=== PATIENT | male | born 1990 | race African-American/Black ===

== ENCOUNTER 2019-11-11 09:52 | Emergency (ER) | payer SELFPAY ==
[~2019-11-11] VITALS: Ht 170.2 cm; Wt 68.0 kg
--- NOTE | 2019-11-11 09:55 | Emergency Room Report ---
History of Present Illness General Chief Complaint: Altered Level of Consciousness Source: Patient (Charli Saleh MD) Present Illness HPI Disclaimer: Please note that this report is being documented using DRAGON technology. This can lead to erroneous entry secondary to incorrect interpretation by the dictating instrument. HPI: 29-year-old male presents from home for altered level of consciousness. He EMS was called by family stated he was more lethargic than usual. Patient arrives alert and oriented x3 and states that he feels weak and nauseated. He admits to drinking alcohol and using drugs last night but will not specify which drugs. Denies chest pain, shortness of breath, cough, fever, chills, vomiting or diarrhea. PMH: Asthma PSH: Denies Allergies: Denies Social Hx: Reports alcohol and drug use (Charli Saleh MD) Allergies: Coded Allergies: No Known Allergies (Unverified , 11/11/19) COVID-19 Screening Contact w/high risk pt: No Experienced COVID-19 symptoms?: No COVID-19 Testing performed PRINTING PLATE MAKER: No (Charli Saleh MD) Nursing Documentation-PMH Hx Asthma: Yes (Charli Saleh MD) Review of Systems All Other Systems: negative except mentioned in HPI (Charli Saleh MD) Physical Exam Vital Signs Date Time Temp Pulse Resp B/P (MAP) Pulse Ox O2 Delivery O2 Flow Rate FiO2 11/11/19 09:44 98.1 110 19 133/80 (97) 96 Room Air General: Awake and alert, no acute distress HEENT: NC/AT. EOMI. Cardiovascular: Tachycardic. S1 and S2 normal. No murmur appreciated Resp: Normal work of breathing. No cough, wheezing or crackles appreciated Abdomen: Abdomen is soft, nondistended. Nontender Skin: Intact. No abrasions, laceration or rash over the exposed skin MSK: Normal tone and bulk. Moving all extremities. No obvious deformity. Neuro: Awake and alert. GCS 15. Mentating appropriately. (Charli Saleh MD) Medical Decision Making Diagnostic Impression: Primary Impression: Amphetamine abuse Additional Impressions: Hyperbilirubinemia Microscopic hematuria Prolonged QT interval ER Course 29-year-old male presents for evaluation of lethargy. Differential includes but is not limited to dehydration, viral syndrome, electrolyte abnormality, infection, alcohol use, drug use. EKG showed sinus rhythm with now normalized rate. His QTC is prolonged. Magnesium slightly low and will replete. Urinalysis unremarkable for infection but is positive for methamphetamines. The patient now admits to using ecstasy earlier. Will be allowed to metabolize and reevaluated once clinically sober. Patient signed out to oncoming physician for ultimate disposition. Labs Test 11/11/19 10:00 11/11/19 11:00 White Blood Count 16.1 K/UL (4.8-10.8) Red Blood Count 4.70 M/UL (4.70-6.10) Hemoglobin 16.1 G/DL (14.2-18.0) Hematocrit 48.8 % (42.0-52.0) Mean Corpuscular Volume 104 FL (80-99) Mean Corpuscular Hemoglobin 34.2 PG (27.0-31.0) Mean Corpuscular Hemoglobin Concent 32.9 G/DL (32.0-36.0) Red Cell Distribution Width 12.8 % (11.6-14.8) Platelet Count 327 K/UL (150-450) Mean Platelet Volume 6.5 FL (6.5-10.1) Neutrophils (%) (Auto) 81.2 % (45.0-75.0) Lymphocytes (%) (Auto) 6.9 % (20.0-45.0) Monocytes (%) (Auto) 7.9 % (1.0-10.0) Eosinophils (%) (Auto) 0.9 % (0.0-3.0) Basophils (%) (Auto) 3.1 % (0.0-2.0) Urine Color Yellow Urine Appearance Clear Urine pH 6.5 (4.5-8.0) Urine Specific Robert 1.020 (1.005-1.035) Urine Protein 4+ (NEGATIVE) Urine Glucose (UA) Negative (NEGATIVE) Urine Ketones 3+ (NEGATIVE) Urine Blood 5+ (NEGATIVE) Urine Nitrite Negative (NEGATIVE) Urine Bilirubin Negative (NEGATIVE) Urine Urobilinogen 1 MG/DL (0.0-1.0) Urine Leukocyte Esterase 1+ (NEGATIVE) Urine RBC 10-15 /HPF (0 - 0) Urine WBC 0-2 /HPF (0 - 0) Urine Squamous Epithelial Cells Occasional /LPF Urine Bacteria Few /HPF (NONE) Urine Mucus Few /LPF (NONE/OCC) Sodium Level 137 MMOL/L (136-145) Potassium Level 3.4 MMOL/L (3.5-5.1) Chloride Level 98 MMOL/L (98-107) Carbon Dioxide Level 28 MMOL/L (21-32) Anion Gap 11 mmol/L (5-15) Blood Urea Nitrogen 6 mg/dL (7-18) Creatinine 1.3 MG/DL (0.55-1.30) Estimat Glomerular Filtration Rate > 60 mL/min (>60) Glucose Level 127 MG/DL (74-106) Calcium Level 9.2 MG/DL (8.5-10.1) Total Bilirubin 3.3 MG/DL (0.2-1.0) Direct Bilirubin 0.4 MG/DL (0.0-0.3) Aspartate Amino Transf (AST/SGOT) 37 U/L (15-37) Alanine Aminotransferase (ALT/SGPT) 38 U/L (12-78) Alkaline Phosphatase 105 U/L (46-116) Total Protein 8.7 G/DL (6.4-8.2) Albumin 4.9 G/DL (3.4-5.0) Globulin 3.8 g/dL Albumin/Globulin Ratio 1.3 (1.0-2.7) Lipase 81 U/L (73-393) Salicylates Level < 0.2 ug/mL (2.8-20) Urine Opiates Screen Negative (NEGATIVE) Acetaminophen Level < 2 MCG/ML (10-30) Urine Barbiturates Screen Negative (NEGATIVE) Phencyclidine (PCP) Screen Negative (NEGATIVE) Urine Amphetamines Screen Positive (NEGATIVE) Urine Benzodiazepines Screen Negative (NEGATIVE) Urine Cocaine Screen Negative (NEGATIVE) Urine Marijuana (THC) Screen Positive (NEGATIVE) Serum Alcohol < 3 mg/dL Phosphorus Level 2.1 MG/DL (2.5-4.9) Magnesium Level 2.3 MG/DL (1.8-2.4) (Charli Saleh MD) ER Course Signout received from Dr. Saleh Patient pending sobriety Reevaluation 4:15 PM patient is able to road test, additionally patient is back to baseline patient wanted me to evaluate his scrotum for bumps, search manager was Jennifer [place] abbreviated exam: No obvious lesions, rugated on the scrotum completely normal Counseled patient to follow-up with cardiology for prolonged QTC disposition home with return precautions also to not utilize drugs Laboratory Tests Test 11/11/19 10:00 11/11/19 11:00 White Blood Count 16.1 K/UL (4.8-10.8) H Red Blood Count 4.70 M/UL (4.70-6.10) Hemoglobin 16.1 G/DL (14.2-18.0) Hematocrit 48.8 % (42.0-52.0) Mean Corpuscular Volume 104 FL (80-99) H Mean Corpuscular Hemoglobin 34.2 PG (27.0-31.0) H Mean Corpuscular Hemoglobin Concent 32.9 G/DL (32.0-36.0) Red Cell Distribution Width 12.8 % (11.6-14.8) Platelet Count 327 K/UL (150-450) Mean Platelet Volume 6.5 FL (6.5-10.1) Neutrophils (%) (Auto) 81.2 % (45.0-75.0) H Lymphocytes (%) (Auto) 6.9 % (20.0-45.0) L Monocytes (%) (Auto) 7.9 % (1.0-10.0) Eosinophils (%) (Auto) 0.9 % (0.0-3.0) Basophils (%) (Auto) 3.1 % (0.0-2.0) H Urine Color Yellow Urine Appearance Clear Urine pH 6.5 (4.5-8.0) Urine Specific Robert 1.020 (1.005-1.035) Urine Protein 4+ (NEGATIVE) H Urine Glucose (UA) Negative (NEGATIVE) Urine Ketones 3+ (NEGATIVE) H Urine Blood 5+ (NEGATIVE) H Urine Nitrite Negative (NEGATIVE) Urine Bilirubin Negative (NEGATIVE) Urine Urobilinogen 1 MG/DL (0.0-1.0) H Urine Leukocyte Esterase 1+ (NEGATIVE) H Urine RBC 10-15 /HPF (0 - 0) H Urine WBC 0-2 /HPF (0 - 0) Urine Squamous Epithelial Cells Occasional /LPF Urine Bacteria Few /HPF (NONE) Urine Mucus Few /LPF (NONE/OCC) H Sodium Level 137 MMOL/L (136-145) Potassium Level 3.4 MMOL/L (3.5-5.1) L Chloride Level 98 MMOL/L (98-107) Carbon Dioxide Level 28 MMOL/L (21-32) Anion Gap 11 mmol/L (5-15) Blood Urea Nitrogen 6 mg/dL (7-18) L Creatinine 1.3 MG/DL (0.55-1.30) Estimated Glomerular Filtration Rate > 60 mL/min (>60) Glucose Level 127 MG/DL (74-106) H Calcium Level 9.2 MG/DL (8.5-10.1) Total Bilirubin 3.3 MG/DL (0.2-1.0) H Direct Bilirubin 0.4 MG/DL (0.0-0.3) H Aspartate Amino Transferase (AST) 37 U/L (15-37) Alanine Aminotransferase (ALT) 38 U/L (12-78) Alkaline Phosphatase 105 U/L (46-116) Total Protein 8.7 G/DL (6.4-8.2) H Albumin 4.9 G/DL (3.4-5.0) Globulin 3.8 g/dL Albumin/Globulin Ratio 1.3 (1.0-2.7) Lipase 81 U/L (73-393) Salicylates Level < 0.2 ug/mL (2.8-20) L Urine Opiates Screen Negative (NEGATIVE) Acetaminophen Level < 2 MCG/ML (10-30) L Urine Barbiturates Screen Negative (NEGATIVE) Phencyclidine (PCP) Screen Negative (NEGATIVE) Urine Amphetamines Screen Positive (NEGATIVE) H Urine Benzodiazepines Screen Negative (NEGATIVE) Urine Cocaine Screen Negative (NEGATIVE) Urine Marijuana (THC) Screen Positive (NEGATIVE) H Serum Alcohol < 3 mg/dL Phosphorus Level 2.1 MG/DL (2.5-4.9) L Magnesium Level 2.3 MG/DL (1.8-2.4) (Frank Pritchard MD) EKG Diagnostic Results EKG Time: 10:01 Rate: normal Rhythm: NSR ST Segments: no acute changes Other Impression Sinus rhythm, normal axis, prolonged QTC. No acute ST segment changes. (Charli Saleh MD) Rhythm Strip Diag. Results Rhythm Strip Time: 10:01 EP Interpretation: yes Rate: 80s Rhythm: NSR, no PVC's, no ectopy (Charli Saleh MD) CT/MRI/US Diagnostic Results CT/MRI/US Diagnostic Results : Impression Procedure: CT Head no Contrast EXAM: CT CT Head no Contrast INDICATION: Altered level consciousness. Weakness and nausea. TECHNIQUE: Axial images of the brain were obtained with subsequent sagittal and coronal reformats. All CT scans at this facility are performed using dose modulation techniques as appropriate to a performed exam including the following: automated exposure control with adjustment of the mA and/or kV according to patient size. COMPARISON STUDY: None. RADIATION DOSE: CTDIvol: 53.4 mGy DLP: 992.9 mGy-cm Dose information generated by the CT scanner is available in PACS. FINDINGS: There is normal symmetry and normal brooks-white differentiation. There is no acute large territory cortical infarct, hemorrhage, mass effect or shift. Ventricles and cisterns as well as brainstem and posterior fossa appear unremarkable. The sellar region is normal. Sinuses, mastoid air cells and bony calvarium appear intact. IMPRESSION: NO ACUTE INTRACRANIAL ABNORMALITY. Dictated By: Omega Morales MD Electronically Signed By: Omega Morales MD Signed Date/Time 11/11/19 1432 CC: Frank Pritchard MD (Frank Pritchard MD) Last Vital Signs Date Time Temp Pulse Resp B/P (MAP) Pulse Ox O2 Delivery O2 Flow Rate FiO2 11/11/19 09:44 98.1 110 19 133/80 (97) 96 Room Air (Charli Saleh MD) Disposition: HOME, SELF-CARE Condition: Stable Referrals: [facility]. [facility] Patient Instructions: Stimulant Use Disorder-Amphetamines Additional Instructions: The patient was provided with discharge instructions, notified to follow-up with a primary care doctor and or specialist in the next 24-48 hours, and to return to the ED if they have worsening of their symptoms. Please note that this report is being documented using [employer]Rx technology. This can lead to erroneous entry secondary to incorrect interpretation by the dictating instrument. PLEASE FOLLOW-UP WITH CARDIOLOGY YOU HAVE A PROLONGED QTC INTERVAL ADDITIONALLY PLEASE DO NOT ABUSE DRUGS Charli Saleh MD Nov 11, 2019 09:55 Frank Pritchard MD Nov 11, 2019 15:35
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
[2019-11-11 10:19] VITALS: BP 133/80
[2019-11-11 10:24] LABS: APPEARANCE,URINE CLEAR; BILIRUBIN, URINE NEGATIVE (NEGATIVE); GLUCOSE, URINE (UA) NEGATIVE (NEGATIVE); KETONES,URINE 3+ (NEGATIVE); LEUKOCYTE ESTERASE ,URINE 1+ (NEGATIVE); NITRITE,URINE NEGATIVE (NEGATIVE); PH,URINE 6.5 (4.5-8.0); PROTEIN,URINE 4+ (NEGATIVE); UROBILINOGEN,URINE 1 MG/DL (0.0-1.0)
[2019-11-11 10:25] LABS: BASOPHILS % (AUTO) 3.1 % (0.0-2.0); EOSINOPHILS % (AUTO) 0.9 % (0.0-3.0); HEMATOCRIT 48.8 % (42.0-52.0); HEMOGLOBIN 16.1 G/DL (14.2-18.0); LYMPHOCYTES % (AUTO) 6.9 % (20.0-45.0); MEAN CORPUSCULAR VOLUME 104 FL (80-99); MONOCYTES % (AUTO) 7.9 % (1.0-10.0); NEUTROPHILS % (AUTO) 81.2 % (45.0-75.0); PLATELET COUNT 327 K/UL (150-450); RED CELL DISTRIBUTION WIDTH 12.8 % (11.6-14.8); WHITE BLOOD COUNT 16.1 K/UL (4.8-10.8)
[2019-11-11 10:31] LABS: COLOR,URINE YELLOW
[2019-11-11 10:37] LABS: ANION GAP 11 mmol/L (5-15); BLOOD UREA NITROGEN 6 mg/dL (7-18); CALCIUM 9.2 MG/DL (8.5-10.1); CARBON DIOXIDE 28 MMOL/L (21-32); CHLORIDE 98 MMOL/L (98-107); CREATININE 1.3 MG/DL (0.55-1.30); POTASSIUM 3.4 MMOL/L (3.5-5.1); SODIUM 137 MMOL/L (136-145)
[2019-11-11 10:47] LABS: ALANINE AMINOTRANSFERASE 38 U/L (12-78); ALBUMIN 4.9 G/DL (3.4-5.0); ALBUMIN/GLOBULIN RATIO 1.3 (1.0-2.7); ALKALINE PHOSPHATASE 105 U/L (46-116); ASPARTATE AMINO TRANSFERASE 37 U/L (15-37); BILIRUBIN,TOTAL 3.3 MG/DL (0.2-1.0)
[2019-11-11 10:48] LABS: BILIRUBIN,DIRECT 0.4 MG/DL (0.0-0.3)
[2019-11-11 11:36] LABS: PHOSPHORUS 2.1 MG/DL (2.5-4.9)
[2019-11-11 12:04] VITALS: BP 128/76
[2019-11-11] MEDS ORDERED: LORazepam Inj 2mg/ml 1ml IV ONE (13:45)
--- NOTE | 2019-11-11 13:50 | NUR ---
ED Nurse Note:CAME TO THE ROOM AND PT. WAS SWEATING EXESIVLY AND NOT RESPONDING TO VOICE, md AWARE, ATIVAN WAS GIVEN FOR POSSIBLE SEIZURE AND MONITORING vs, PT. HAD ct SCAN OF HEAD DONE
[2019-11-11 14:00] VITALS: BP 137/78
--- NOTE | 2019-11-11 14:37 | Diagnostic Imaging Report ---
EXAM: CT CT Head no Contrast INDICATION: Altered level consciousness. Weakness and nausea. TECHNIQUE: Axial images of the brain were obtained with subsequent sagittal and coronal reformats. All CT scans at this facility are performed using dose modulation techniques as appropriate to a performed exam including the following: automated exposure control with adjustment of the mA and/or kV according to patient size. COMPARISON STUDY: None. RADIATION DOSE: CTDIvol: 53.4 mGy DLP: 992.9 mGy-cm Dose information generated by the CT scanner is available in PACS. FINDINGS: There is normal symmetry and normal brooks-white differentiation. There is no acute large territory cortical infarct, hemorrhage, mass effect or shift. Ventricles and cisterns as well as brainstem and posterior fossa appear unremarkable. The sellar region is normal. Sinuses, mastoid air cells and bony calvarium appear intact. IMPRESSION: NO ACUTE INTRACRANIAL ABNORMALITY.
--- NOTE | 2019-11-11 15:32 | NUR ---
CALL MOTHER WHEN PATIENT IS READY TO GO HOME [phone]
--- NOTE | 2019-11-11 16:25 | NUR ---
ED Nurse Note: Pt cleared by health care Provider for discharge. DC instructions was given and explained to pt and verbalized understanding of teachings. All medical deviecs such as ID band removed. Pt is AAO x4, ambulatory and left with all personal belongings.
[2019-11-11 16:28] VITALS: BP 112/78
== END 2019-11-11 16:30 | disposition home or self-care (01) ==
LOC: EDBD 09:52 → EMR 10:18
DX: F15.10 Other stimulant abuse, uncomplicated (principal); E80.6 Other disorders of bilirubin metabolism; R31.29 Other microscopic hematuria; F10.10 Alcohol abuse, uncomplicated; J45.909 Unspecified asthma, uncomplicated; Y90.0 Blood alcohol level of less than 20 mg/100 ml
CPT/HCPCS: 36415; 70450; 80053; 80307; 81003; 82248; 83690; 83735; 84100; 85025; 93005; 96361; 96365; 96366; 96375; 99285; G0480; J2405; J7030

== ENCOUNTER 2019-11-11 17:13 | Emergency (ER) | payer SELFPAY ==
[~2019-11-11] VITALS: Ht 170.2 cm; Wt 59.0 kg
[2019-11-11 17:34] VITALS: BP 122/78
--- NOTE | 2019-11-11 17:36 | NUR ---
ED Nurse Note:pt. came back with c/o not feeling good and having nausea
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
--- NOTE | 2019-11-11 17:48 | NUR ---
ED Nurse Note:called pt's mother to pick him up ,she said that she will be here at 1830
[2019-11-11 18:25] VITALS: BP 122/78
--- NOTE | 2019-11-11 18:25 | NUR ---
ED Nurse Note:pt. was cleared for d/c by Er , he was picked up by his brother, d/c instructions given to him
== END 2019-11-11 18:30 | disposition home or self-care (01) ==
LOC: EMR 17:56
DX: F15.10 Other stimulant abuse, uncomplicated (principal); J45.909 Unspecified asthma, uncomplicated
CPT/HCPCS: 99281